=== PATIENT | female | born 1995 | race Caucasian/White ===

== ENCOUNTER 2021-07-15 09:12 | Inpatient (IN) | payer MEDICAID, OTHER ==
[~2021-07-15] VITALS: Ht 160 cm; Wt 87.1 kg
[2021-07-15] MEDS ORDERED: NALOXONE HCL 0.4 MG/ML 1ML VIAL IM PRN (14:00)
[2021-07-15] MEDS ORDERED: LIDOCAINE HCL 1% 20ML VIAL (Pyxis) INJ INFIL SCH (14:00)
[2021-07-15] MEDS ORDERED: BUTORPHANOL TARTRATE 2 MG/ML VIAL IV PRN (14:00)
[2021-07-15] MEDS ORDERED: METHYLERGONOVINE MALEATE 0.2 MG/ML IM PRN (14:00)
[2021-07-15] MEDS ORDERED: DEXT 5%/LR + PITOCIN 20UNITS/L 1,000 ML IV SCH (14:00)
[2021-07-15] MEDS: MISOPROSTOL 100MCG TABLET VG SCH ×2 (14:50→19:07)
[2021-07-15 15:21] LABS: BASOPHILS % 0.2 % (0.0-2.0); EOSINOPHILS % 0.4 % (0.0-5.0); HEMATOCRIT. 32.7 % (36.0-48.0); HEMOGLOBIN. 11.5 g/dL (12.0-16.0); LYMPHOCYTES % 22.6 % (20.0-50.0); MEAN CORPUSCULAR HEMOGLOBIN 27.2 pg (28.0-32.0); MEAN CORPUSCULAR VOLUME 77.7 fL (81.0-99.0); MEAN PLATELET VOLUME 7.4 fl (7.4-10.4); MONOCYTES % 4.5 % (2.0-8.0); NEUTROPHILS % 72.3 % (40.0-76.0); PLATELET 384 x1000/uL (130-400); RED BLOOD CELL COUNT 4.21 mill/uL (4.2-5.4); RED CELL DISTRIBUTION WIDTH 14.5 % (11.6-14.6)
[2021-07-15 15:23] LABS: CLARITY URINE CLEAR (CLEAR); COLOR URINE YELLOW (YELLOW); KETONES URINE NEGATIVE (NEGATIVE); LEUKOCYTE ESTERASE URINE TRACE (NEGATIVE); NITRITE URINE NEGATIVE (NEGATIVE); OCCULT BLOOD URINE NEGATIVE (NEGATIVE); PH URINE 6.5 (4.5-8.0); PROTEIN URINE NEGATIVE (NEGATIVE); SPECIFIC GRAVITY URINE 1.005 (1.005-1.030); UROBILINOGEN URINE 0.2 E.U./dL (0.2-1.0)
[2021-07-15 15:34] LABS: PARTIAL THROMBOPLASTIN TIME 27.6 sec (23.4-31.0); PROTHROMBIN TIME 10.9 sec (9.6-11.0)
[2021-07-15 15:38] LABS: METHADONE URINE SCREEN NEGATIVE (NEGATIVE)
[2021-07-15 15:39] LABS: *BARBITURATES SCREEN URINE NEGATIVE (NEGATIVE); *COCAINE SCREEN URINE NEGATIVE (NEGATIVE); CANNABINOID URINE SCREEN NEGATIVE (NEGATIVE); OPIATES URINE SCREEN NEGATIVE (NEGATIVE); PHENCYCLIDINE URINE SCREEN NEGATIVE (NEGATIVE)
[2021-07-15 15:40] LABS: *BENZODIAZEPINES SCREEN URINE NEGATIVE (NEGATIVE)
[2021-07-15] MEDS: LACTATED RINGERS 1,000 ML IV SCH ×2 (15:40→23:44)
[2021-07-15 15:45] LABS: *AMPHETAMINES SCREEN URINE NEGATIVE (NEGATIVE)
[2021-07-15 16:16] LABS: HEPATITIS B SURFACE ANTIGEN NEGATIVE
[2021-07-15] MEDS ORDERED: ROPIVACAINE HCL/PF EPIDURAL 200 ML EPI ONE (23:44)
[2021-07-16] MEDS ORDERED: DEXT 5%/LR + PITOCIN 20UNITS/L 1,000 ML IV SCH (06:00)
[2021-07-16] MEDS ORDERED: LANOLIN OINT 7GM TUBE TOP PRN (06:00)
[2021-07-16] MEDS ORDERED: BISACODYL 10MG SUPP PR PRN (06:00)
[2021-07-16] MEDS ORDERED: ACETAMINOPHEN WITH CODEINE 300/30MG TABLET PO PRN (06:00)
[2021-07-16] MEDS ORDERED: BENZOCAINE/LANOLIN/ALOE VERA SPRAY TOP PRN (06:00)
[2021-07-16] MEDS ORDERED: GLYCERIN/WITCH HAZEL LEAF MEDICATED PAD TOP PRN (06:00)
[2021-07-16] MEDS ORDERED: HEMORRHOIDAL SUPP PR PRN (06:00)
[2021-07-16] MEDS ORDERED: RHO(D) IMMUNE GLOBULIN 300 MCG/SYR IM PRN (06:00)
[2021-07-16] MEDS ORDERED: IBUPROFEN 400MG TABLET PO PRN (06:00)
[2021-07-16 07:45] VITALS: BP 118/74
[2021-07-16] MEDS: PRENATAL VIT/FE FUMARATE/FA TABLET PO SCH (09:08)
[2021-07-16] MEDS: MAGNESIUM/ALUMINUM HYDROXIDE/SIMETHICONE 30ML UDC PO SCH ×4 (09:08→22:06)
[2021-07-16] MEDS: SIMETHICONE 80MG TABLET CHEW PO SCH ×4 (09:08→22:06)
[2021-07-16] MEDS: IBUPROFEN 800MG TABLET PO PRN ×3 (09:09→22:06)
[2021-07-16 16:15] VITALS: BP 111/70
[2021-07-16 20:00] VITALS: BP 124/81
[2021-07-16] MEDS ORDERED: DOCUSATE SODIUM 100MG CAPSULE PO SCH (21:00)
[2021-07-17 04:00] VITALS: BP 114/72
[2021-07-17 04:24] LABS: BASOPHILS % 0.3 % (0.0-2.0); EOSINOPHILS % 1.1 % (0.0-5.0); HEMATOCRIT. 30.5 % (36.0-48.0); HEMOGLOBIN. 10.6 g/dL (12.0-16.0); LYMPHOCYTES % 26.2 % (20.0-50.0); MEAN CORPUSCULAR HEMOGLOBIN 27.8 pg (28.0-32.0); MEAN CORPUSCULAR VOLUME 80.1 fL (81.0-99.0); MEAN PLATELET VOLUME 7.3 fl (7.4-10.4); MONOCYTES % 5.2 % (2.0-8.0); NEUTROPHILS % 67.2 % (40.0-76.0); PLATELET 332 x1000/uL (130-400); RED BLOOD CELL COUNT 3.81 mill/uL (4.2-5.4); RED CELL DISTRIBUTION WIDTH 14.7 % (11.6-14.6)
[2021-07-17] MEDS ORDERED: FERR325T23 PO (07:21)
[2021-07-17] MEDS ORDERED: MULT-1146 MT (07:21)
[2021-07-17] MEDS ORDERED: IBUP-2030 PO (07:21)
[2021-07-17] MEDS ORDERED: FERROUS SULFATE 325MG TABLET PO SCH (07:30)
[2021-07-17 08:00] VITALS: BP 113/79
[2021-07-17] MEDS: PRENATAL VIT/FE FUMARATE/FA TABLET PO SCH (09:03)
[2021-07-17] MEDS: SIMETHICONE 80MG TABLET CHEW PO SCH (09:03)
[2021-07-17] MEDS: MAGNESIUM/ALUMINUM HYDROXIDE/SIMETHICONE 30ML UDC PO SCH (09:03)
[2021-07-17] MEDS: IBUPROFEN 800MG TABLET PO PRN (09:04)
== END 2021-07-17 12:30 | disposition home or self-care (01) | DRG 560 ==
LOC: 8 EST LDRP 09:12 → OBSVTOIN 09:12 → 8EST 07-16 07:20
PROVIDERS: ADMIT Obstetrics & Gynecology; ATTEND Obstetrics & Gynecology
PROC: 10E0XZZ Delivery of Products of Conception, External Approach (ICD-10-PCS; principal; 2021-07-16)
PROC: 3E0R3BZ Introduction of Anesthetic Agent into Spinal Canal, Percutaneous Approach (ICD-10-PCS; 2021-07-16)
PROC: 00HU33Z Insertion of Infusion Device into Spinal Canal, Percutaneous Approach (ICD-10-PCS; 2021-07-16)
DX: O99.03 Anemia complicating the puerperium (principal); Z37.0 Single live birth; Z20.822 Contact with and (suspected) exposure to COVID-19; Z3A.39 39 weeks gestation of pregnancy
CPT/HCPCS: 36415; 76805; 76818; 80305; 81003; 85025; 86592; 86703; 86762; 86850; 86900; 87340; 87426; 99281; J2590; J2795; J7120; A4315